=== PATIENT | male | born 1960 | race Caucasian/White ===

== ENCOUNTER → 2019-02-18 14:14 | Outpatient (CLI) | payer OTHER, SELFPAY ==
[2019-02-18 15:28] LABS: Hemoglobin 14.1 g/dL (13.0-16.5); Mean Corp Hgb Conc 32.8 g/dL (32-36); Mean Corpuscular Hgb 29.4 pg (27.0-32.0); Mean Corpuscular Volume 89.6 fL (80-94); Mean Platelet Vol. 8.7 fl (6.2-12.0); Platelet Count 203 K/mm3 (150-450); RBC Distribution Width CV 12.8 % (11.6-14.6); RBC Distribution Width SD 42.5 fl (35.1-43.9); White Blood Count 6.4 K/mm3 (4.4-11.0)
[2019-02-18 16:04] LABS: Anion Gap 4 (5-15); BUN 18 mg/dL (7-18); BUN/Creat Ratio 16.7 RATIO (10-20); Calcium,Total 8.4 mg/dL (8.5-10.1); Chloride 105 mmol/L (98-107); Creatinine, Serum 1.08 mg/dL (0.70-1.30); EST Glomerular Filtration Rate 74 mL/min (>60); Est Glom Filt Rate - Afr Amer 90 mL/min (>60); Glucose 97 mg/dL (74-106); Potassium 3.7 mmol/L (3.5-5.1); Sodium Level 140 mmol/L (136-145)
== END ==
PROVIDERS: Family Provider Family Medicine; PCP Family Medicine; Referring Provider Physician Assistant; Visit Provider Physician Assistant
DX: Z01.818 Encounter for other preprocedural examination (principal); Z01.810 Encounter for preprocedural cardiovascular examination
CPT/HCPCS: 36415; 80048; 85027

== ENCOUNTER → 2019-02-19 14:16 | Outpatient (CLI) | payer OTHER, SELFPAY ==
--- NOTE | 2019-02-19 14:19 | EKG12_ITS ---
Test Reason : PRE OP Blood Pressure : / mmHG Vent. Rate : 059 BPM Atrial Rate : 059 BPM P-R Int : 242 ms QRS Dur : 086 ms QT Int : 434 ms P-R-T Axes : 064 034 052 degrees QTc Int : 429 ms Sinus bradycardia with 1st degree A-V block Otherwise normal ECG Confirmed by MICKEY SARAIBA, DANTE ([id number]), editor book ALEXIS PICKARD ([id number]) on 02/20/2019 10:33:53 AM Referred By: Blas Martel Confirmed By:DANTE AREVALO MD
== END ==
PROVIDERS: Family Provider Family Medicine; PCP Family Medicine; Referring Provider Physician Assistant; Visit Provider Physician Assistant
DX: Z01.818 Encounter for other preprocedural examination (principal); Z01.810 Encounter for preprocedural cardiovascular examination
CPT/HCPCS: 93005

== ENCOUNTER 2021-03-11 13:46 | Outpatient (CLI) | payer OTHER, SELFPAY ==
--- NOTE | 2021-03-11 14:14 | EKG12_ITS ---
Test Reason : PREOP Blood Pressure : / mmHG Vent. Rate : 057 BPM Atrial Rate : 057 BPM P-R Int : 250 ms QRS Dur : 088 ms QT Int : 458 ms P-R-T Axes : 062 049 048 degrees QTc Int : 445 ms Sinus bradycardia with 1st degree A-V block Otherwise normal ECG Confirmed by SUDARSHAN SARABIA, DEMAR ([id number]), scientific publications editor TAYLER BLEDSOE ([id number]) on 03/12/2021 1:04:05 PM Referred By: Yessy Ham Confirmed By:KIMMIE HEATON MD
[2021-03-11 15:05] LABS: Absolute Lymphocyte Count 1.58 X10^3/uL (0.83-4.51); Absolute Neutrophil Count 2.1 X10^3/uL (2.0-7.7); Basophil# 0.02 X10^3/uL; Basophil% 0.5 % (0-1); Eosinophil# 0.16 X10^3/uL; Eosinophils% 3.7 % (0-5); Hemoglobin 13.3 g/dL (13.0-16.5); Lymphocyte # 1.58 X10^3/ul (0.83-4.51); Lymphocyte % 36.8 % (19-41); Mean Corp Hgb Conc 32.4 g/dL (32-36); Mean Corpuscular Hgb 29.6 pg (27.0-32.0); Mean Corpuscular Volume 91.1 fL (80-94); Mean Platelet Vol. 8.8 fl (6.2-12.0); Monocyte# 0.45 X10^3/uL; Monocyte% 10.5 % (0-10); NRBC Flagged by Analyzer 0 % (0-5); Neutrophil # 2.06 X10^3/uL (2.7-7.7); Platelet Count 188 K/mm3 (150-450); RBC Distribution Width CV 13.2 % (11.6-14.6); RBC Distribution Width SD 44.7 fl (35.1-43.9); White Blood Count 4.3 K/mm3 (4.4-11.0)
[2021-03-11 15:41] LABS: Anion Gap 5 (5-15); BUN 18 mg/dL (7-18); BUN/Creat Ratio 16.8 RATIO (10-20); Calcium,Total 7.9 mg/dL (8.5-10.1); Chloride 109 mmol/L (98-107); Creatinine, Serum 1.07 mg/dL (0.70-1.30); EST Glomerular Filtration Rate 74 mL/min (>60); Est Glom Filt Rate - Afr Amer 90 mL/min (>60); Glucose 135 mg/dL (74-106); Potassium 3.8 mmol/L (3.5-5.1); Sodium Level 141 mmol/L (136-145)
== END 2021-03-11 23:59 | disposition short-term general hospital (02) ==
PROVIDERS: Referring Provider Physician Assistant Surgical; Visit Provider Physician Assistant Surgical
DX: Z01.818 Encounter for other preprocedural examination (principal); Z01.810 Encounter for preprocedural cardiovascular examination
CPT/HCPCS: 36415; 80048; 85025; 93005

== ENCOUNTER → 2022-03-23 | Outpatient (CLI) | payer OTHER, SELFPAY ==
--- NOTE | 2022-03-23 15:30 | MRI_ITS ---
INDICATION: SUDDEN UNILATERAL RIGHT HEARING LOSS;ATTN: IACs EXAMINATION: MRI - MR Brain WO/W Contrast with attention to the IACs TECHNIQUE: Multiplanar and multisequence MR images of the brain were obtained without and with gadolinium. Dedicated sequences of the IACs were obtained. IV Contrast Dosage and Agent: CLARISCAN 16mL COMPARISON: None. FINDINGS: Brain: No acute infarct, hemorrhage, or mass. Small in size and number chronic FLAIR/T2 hyperintensities in the cerebral white matter. No midline shift, hydrocephalus or herniation. No abnormal enhancement. Major flow voids preserved. Paranasal sinuses with no air-fluid levels. Mastoid air cells and middle ears patent. Calvarium unremarkable. Extracranial soft tissues unremarkable. IACs: Normal pre and postcontrast appearance of the bilateral 7th and 8th cranial nerves, IACs, CP angles, cochlea and vestibular apparatus. No mass or abnormal enhancement. MRI/Brain W/WO Contrast IMPRESSION: No acute or concerning findings. No etiology for hearing loss identified. Electronically Signed: Juan Gracia MD at 6:00 EST Reading Location ID and State: [facility] [place] Tel , Service support ,
[2022-03-23 15:40] LABS: CREATININE FINGERSTICK < 0.9 mg/dL (0.70-1.30); EGFR FINGERSTICK > 60.0000 mL/min (>60)
== END | disposition home or self-care (01) ==
PROVIDERS: Referring Provider Otolaryngology Otolaryngology/Facial Plastic Surgery; Visit Provider Otolaryngology Otolaryngology/Facial Plastic Surgery
DX: H90.A31 Mixed conductive and sensorineural hearing loss, unilateral, right ear with restricted hearing on the contralateral side (principal)
CPT/HCPCS: 70553; A9575